=== PATIENT | female | born 1995 | race Caucasian/White ===

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

== ENCOUNTER 2017-03-06 19:13 | Emergency (ER) | payer BC ==
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
[2017-03-06 21:04] LABS: ABSOLUTE EOSINOPHILS # (AUTO) 0.1 10^3/uL (0.0-0.6); ABSOLUTE LYMPHOCYTES (AUTO) 2.5 10^3/uL (0.5-4.7); ABSOLUTE MONOCYTES (AUTO) 0.6 10^3/uL (0.1-1.4); ABSOLUTE NEUT (AUTO) 6.6 10^3/uL (1.7-8.2); BASOPHILS % (AUTO) 0.4 % (0-2); EOSINOPHILS % (AUTO) 0.9 % (0-6); HEMATOCRIT 38.7 % (36.0-47.0); HEMOGLOBIN 13.1 g/dL (12.0-15.5); HGB HCT DIFFERENCE 0.6; LYMPHOCYTES % (AUTO) 25.2 % (13-45); MEAN CORPUSCULAR HEMOGLOBIN 32.8 pg (27.0-33.4); MEAN CORPUSCULAR VOLUME 97 fl (80-97); MONOCYTES % (AUTO) 5.7 % (3-13); RED CELL DISTRIBUTION WIDTH 13.1 % (11.5-14.0); SEGMENTED NEUTROPHILS % (AUTO) 67.8 % (42-78); WHITE BLOOD COUNT 9.8 10^3/uL (4.0-10.5)
[2017-03-06 21:12] LABS: ALANINE AMINOTRANSFERASE 24 U/L (9-52); ALBUMIN 4.3 g/dL (3.5-5.0); ALKALINE PHOSPHATASE 54 U/L (38-126); ANION GAP 9 (5-19); ASPARTATE AMINO TRANSFERASE 20 U/L (14-36); BILIRUBIN,DIRECT 0.3 mg/dL (0.0-0.4); BILIRUBIN,TOTAL 0.4 mg/dL (0.2-1.3); BLOOD UREA NITROGEN 12 mg/dL (7-20); CALCIUM 9.4 mg/dL (8.4-10.2); CARBON DIOXIDE 26 mmol/L (22-30); CHLORIDE 105 mmol/L (98-107); CREATININE RESULT 0.81 mg/dL (0.52-1.25); GLUCOSE 79 mg/dL (75-110); LIPASE 121.5 U/L (23-300); POTASSIUM 3.6 mmol/L (3.6-5.0); SODIUM 140.2 mmol/L (137-145); TOTAL PROTEIN 7.1 g/dL (6.3-8.2)
[2017-03-06 21:12] LABS: AMORPHOUS SEDIMENT,URINE TRACE /HPF; APPEARANCE,URINE SLIGHTLY-CLOUDY; BILIRUBIN,URINE NEGATIVE (NEGATIVE); GLUCOSE, URINE NEGATIVE (NEGATIVE); KETONES,URINE TRACE mg/dL (NEGATIVE); LEUKOCYTE ESTERASE,URINE NEGATIVE (NEGATIVE); NITRITE,URINE NEGATIVE (NEGATIVE); PROTEIN,URINE >=500 mg/dL (NEGATIVE); URINE SPECIFIC GRAVITY 1.024; UROBILINOGEN,URINE NEGATIVE mg/dL (<2.0)
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
[2017-03-06 22:39] VITALS: BP 116/71
== END 2017-03-06 22:25 | disposition home or self-care (01) ==
LOC: ER 19:13
DX: N93.9 Abnormal uterine and vaginal bleeding, unspecified (principal); R10.30 Lower abdominal pain, unspecified; Z87.59 Personal history of other complications of pregnancy, childbirth and the puerperium
CPT/HCPCS: 36415; 80053; 81001; 83690; 84702; 85025; 86900; 86901; 87086; 87088; 99284

== ENCOUNTER 2017-08-29 18:18 | Outpatient (CLI) | payer BC ==
[2017-08-29 20:48] LABS: AMORPHOUS SEDIMENT,URINE TRACE /HPF; APPEARANCE,URINE SLIGHTLY-CLOUDY; BILIRUBIN,URINE NEGATIVE (NEGATIVE); GLUCOSE, URINE NEGATIVE (NEGATIVE); KETONES,URINE NEGATIVE (NEGATIVE); LEUKOCYTE ESTERASE,URINE NEGATIVE (NEGATIVE); NITRITE,URINE NEGATIVE (NEGATIVE); PROTEIN,URINE >=500 mg/dL (NEGATIVE); URINE SPECIFIC GRAVITY 1.007; UROBILINOGEN,URINE NEGATIVE mg/dL (<2.0)
[2017-08-29 21:20] LABS: URINE BARBITURATES SCREEN NEGATIVE; URINE METHADONE SCREEN NEGATIVE; URINE OPIATES LOW NEGATIVE; URINE PHENCYCLIDINE SCREEN NEGATIVE
== END 2017-08-29 21:05 | disposition home or self-care (01) ==
LOC: EDSTATUS 18:51 → LC 18:53
PROVIDERS: ATTEND Obstetrics & Gynecology
DX: Z32.02 Encounter for pregnancy test, result negative (principal)
CPT/HCPCS: 80307; 81001; 81025

== ENCOUNTER 2017-09-09 19:37 | Emergency (ER) | payer BC ==
[2017-09-09] MEDS ORDERED: LIDOCAINE 1% INJ-PF (10 MG/ML) 30 ML SDV INJ ONE (20:19)
[2017-09-09] MEDS ORDERED: AZITHROMYCIN 250 MG TABLET PO ONE (20:19)
[2017-09-09] MEDS ORDERED: PROMETHAZINE HCL 25 MG TABLET PO ONE (20:19)
[2017-09-09] MEDS ORDERED: METRONIDAZOLE 500 MG TABLET PO ONE (20:19)
[2017-09-09] MEDS ORDERED: CEFTRIAXONE INJ 250 MG VIAL IM ONE (20:19)
[2017-09-09] MEDS ORDERED: LEVONORGESTREL 1.5 MG TABLET (1 TAB/ER-USE) PO ONE (20:19)
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
[2017-09-09] MEDS ORDERED: IBUPROFEN 600 MG TABLET PO ONE (22:21)
[2017-09-09] MEDS ORDERED: ACETAMINOPHEN 325 MG TABLET PO ONE (22:21)
[2017-09-09] MEDS ORDERED: ONDANSETRON 4 MG TAB.RAPDIS PO ONE (22:21)
--- NOTE | 2017-09-09 22:41 | RADIOLOGY REPORT (SQ) ---
EXAM DESCRIPTION: HIP RIGHT AP/LATERAL COMPLETED DATE/TIME: 09/09/2017 10:30 pm REASON FOR STUDY: right hip pain COMPARISON: None. NUMBER OF VIEWS: Two views. TECHNIQUE: AP pelvis and additional frog-leg view of the right hip. LIMITATIONS: None. FINDINGS: MINERALIZATION: Normal. RIGHT HIP: No fracture or dislocation. No worrisome bone lesions. LEFT HIP: No fracture or dislocation. No worrisome bone lesions. PUBIS AND ISCHIUM: No fracture. PELVIS: No fracture. SACRUM: No fracture or dislocation. No worrisome bone lesions. LOWER LUMBAR SPINE: No fracture or dislocation. No worrisome bone lesions. No significant disc disea se. SOFT TISSUES: No findings. OTHER: No other significant finding. IMPRESSION: NO RADIOGRAPHIC EVIDENCE OF ACUTE INJURY. TECHNICAL DOCUMENTATION: JOB ID: [id number]- All Rights Reserved
[2017-09-09 23:06] VITALS: BP 99/52
== END 2017-09-09 23:00 | disposition home or self-care (01) ==
LOC: ER 19:37
DX: S76.011A Strain of muscle, fascia and tendon of right hip, initial encounter (principal); T76.21XA Adult sexual abuse, suspected, initial encounter; M25.551 Pain in right hip; Y93.85 Activity, choking game
CPT/HCPCS: 99285; 96372; 87210; 81025; 73502; S0119; J3490; J0696; A9270